=== PATIENT | female | born 1990 | race Caucasian/White ===

== ENCOUNTER → 2016-12-29 | Outpatient (CLI) | payer OTHER ==
[2016-12-29 14:06] LABS: APPEARANCE,URINE SLIGHTLY-CLOUDY; BILIRUBIN,URINE NEGATIVE (NEGATIVE); GLUCOSE, URINE NEGATIVE (NEGATIVE); KETONES,URINE NEGATIVE (NEGATIVE); LEUKOCYTE ESTERASE,URINE SMALL (NEGATIVE); NITRITE,URINE NEGATIVE (NEGATIVE); PROTEIN,URINE 30 mg/dL (NEGATIVE); URINE SPECIFIC GRAVITY 1.024; UROBILINOGEN,URINE NEGATIVE mg/dL (<2.0)
[2016-12-29 14:14] LABS: ALANINE AMINOTRANSFERASE 28 U/L (9-52); ALBUMIN 3.6 g/dL (3.5-5.0); ALKALINE PHOSPHATASE 50 U/L (38-126); ANION GAP 10 (5-19); ASPARTATE AMINO TRANSFERASE 14 U/L (14-36); BILIRUBIN,TOTAL 0.2 mg/dL (0.2-1.3); BLOOD UREA NITROGEN 10 mg/dL (7-20); CALCIUM 8.9 mg/dL (8.4-10.2); CARBON DIOXIDE 18 mmol/L (22-30); CHLORIDE 115 mmol/L (98-107); GLUCOSE 80 mg/dL (75-110); POTASSIUM 3.5 mmol/L (3.6-5.0); SODIUM 142.8 mmol/L (137-145); TOTAL PROTEIN 6.4 g/dL (6.3-8.2)
[2016-12-29 14:18] LABS: C-REACTIVE PROTEIN < 5.0 mg/L (<10.0); CREATINE KINASE < 20 U/L (30-135)
[2016-12-29 14:34] LABS: ABSOLUTE LYMPHOCYTES (AUTO) 0.9 10^3/uL (0.5-4.7); ABSOLUTE MONOCYTES (AUTO) 0.4 10^3/uL (0.1-1.4); ABSOLUTE NEUT (AUTO) 2.2 10^3/uL (1.7-8.2); BASOPHILS % (AUTO) 0.2 % (0-2); EOSINOPHILS % (AUTO) 0.3 % (0-6); HEMATOCRIT 28.3 % (36.0-47.0); HEMOGLOBIN 9.4 g/dL (12.0-15.5); HGB HCT DIFFERENCE -0.1; LYMPHOCYTES % (AUTO) 24.9 % (13-45); MEAN CORPUSCULAR HEMOGLOBIN 28.1 pg (27.0-33.4); MEAN CORPUSCULAR HGB CONC 33.1 g/dL (32.0-36.0); MEAN CORPUSCULAR VOLUME 85 fl (80-97); MONOCYTES % (AUTO) 12.5 % (3-13); RED BLOOD COUNT 3.34 10^6/uL (3.72-5.28); RED CELL DISTRIBUTION WIDTH 20.7 % (11.5-14.0); SEGMENTED NEUTROPHILS % (AUTO) 62.1 % (42-78); WHITE BLOOD COUNT 3.6 10^3/uL (4.0-10.5)
[2016-12-29 15:10] LABS: ERYTHROCYTE SEDIMENTATION RATE 22 mm/hr (0-20)
[2016-12-30 10:45] LABS: VITAMIN D 25-HYDROXY 19.2 ng/mL (30.0-100.0)
[2017-01-03 13:39] LABS: QUANTIFERON TB ANTIGEN VALUE 0.08 IU/mL (.)
== END ==
LOC: LAB 13:41
PROVIDERS: ATTEND Internal Medicine Rheumatology
DX: M32.9 Systemic lupus erythematosus, unspecified (principal); M33.20 Polymyositis, organ involvement unspecified; M32.14 Glomerular disease in systemic lupus erythematosus; M25.50 Pain in unspecified joint; M79.1 Myalgia; Z79.899 Other long term (current) drug therapy
CPT/HCPCS: 36415; 80053; 81001; 82306; 82550; 85025; 85652; 86140; 86480

== ENCOUNTER → 2017-01-19 | Outpatient (CLI) | payer OTHER ==
[2017-01-19 12:05] LABS: ABSOLUTE LYMPHOCYTES (AUTO) 0.4 10^3/uL (0.5-4.7); ABSOLUTE MONOCYTES (AUTO) 0.4 10^3/uL (0.1-1.4); ABSOLUTE NEUT (AUTO) 4.7 10^3/uL (1.7-8.2); BASOPHILS % (AUTO) 0.1 % (0-2); HEMATOCRIT 32.1 % (36.0-47.0); HEMOGLOBIN 10.5 g/dL (12.0-15.5); HGB HCT DIFFERENCE -0.6; LYMPHOCYTES % (AUTO) 7.4 % (13-45); MEAN CORPUSCULAR HEMOGLOBIN 27.9 pg (27.0-33.4); MEAN CORPUSCULAR HGB CONC 32.6 g/dL (32.0-36.0); MEAN CORPUSCULAR VOLUME 86 fl (80-97); MONOCYTES % (AUTO) 7.7 % (3-13); RED BLOOD COUNT 3.75 10^6/uL (3.72-5.28); RED CELL DISTRIBUTION WIDTH 19.3 % (11.5-14.0); SEGMENTED NEUTROPHILS % (AUTO) 84.8 % (42-78); WHITE BLOOD COUNT 5.5 10^3/uL (4.0-10.5)
[2017-01-19 12:32] LABS: ALANINE AMINOTRANSFERASE 25 U/L (9-52); ALBUMIN 4.2 g/dL (3.5-5.0); ALKALINE PHOSPHATASE 55 U/L (38-126); ANION GAP 13 (5-19); ASPARTATE AMINO TRANSFERASE 16 U/L (14-36); BILIRUBIN,DIRECT 0.1 mg/dL (0.0-0.4); BILIRUBIN,TOTAL 0.2 mg/dL (0.2-1.3); BLOOD UREA NITROGEN 19 mg/dL (7-20); CALCIUM 10.2 mg/dL (8.4-10.2); CARBON DIOXIDE 17 mmol/L (22-30); CHLORIDE 114 mmol/L (98-107); CREATININE RESULT 0.79 mg/dL (0.52-1.25); GLUCOSE 122 mg/dL (75-110); POTASSIUM 3.9 mmol/L (3.6-5.0); SODIUM 143.7 mmol/L (137-145); TOTAL PROTEIN 7.2 g/dL (6.3-8.2)
[2017-01-19 12:43] LABS: ERYTHROCYTE SEDIMENTATION RATE 25 mm/hr (0-20)
[2017-01-20 06:39] LABS: COMPLEMENT C4 5 mg/dL (14-44)
[2017-01-20 10:15] LABS: COMPLEMENT C3 76 mg/dL (82-167)
[2017-01-20 10:38] LABS: ANTI-SS-B AB SJOGREN'S <0.2 AI (0.0-0.9)
[2017-01-20 14:57] LABS: JO-1 ANTIBODY <0.2 AI (0.0-0.9)
[2017-01-20 15:38] LABS: A/G RATIO 1.3 (0.7-1.7); ALBUMIN 2 3.8 g/dL (2.9-4.4); ALPHA-1-GLOBULIN 2 0.2 g/dL (0.0-0.4); GAMMA GLOBULIN 1.3 g/dL (0.4-1.8); PROTEIN TOTAL SERUM 6.8 g/dL (6.0-8.5)
[2017-01-20 16:28] LABS: CREATININE 0.79 mg/dL (0.52-1.25)
[2017-01-20 16:37] LABS: URINE CREATININE 57.8 mg/dL (16-327)
[2017-01-20 16:43] LABS: URINE CREATININE 57.8 mg/dL (16-327)
[2017-01-21 12:06] LABS: COMPLEMENT TOTAL (CH50) 31 U/mL (42-60)
[2017-01-23 07:14] LABS: PROTEIN TOTAL UR 24HR 556.8 mg/24 hr (30.0-150.0)
== END ==
LOC: LAB 11:29
PROVIDERS: ATTEND Internal Medicine Nephrology
DX: I10 Essential (primary) hypertension (principal); R31.29 Other microscopic hematuria; R80.9 Proteinuria, unspecified; M32.9 Systemic lupus erythematosus, unspecified
CPT/HCPCS: 36415; 80053; 82570; 82575; 84156; 84165; 85025; 85652; 86160; 86162; 86225; 86235

== ENCOUNTER 2017-02-08 05:57 | Day surgery (SDC) | payer OTHER ==
[2017-02-08 06:48] LABS: PROTHROMBIN TIME 13.2 SEC (11.4-15.4)
[2017-02-08 06:49] LABS: PARTIAL THROMBOPLASTIN TIME 26.7 SEC (23.5-35.8)
[2017-02-08 06:50] LABS: HEMATOCRIT 30.3 % (36.0-47.0); HEMOGLOBIN 10.1 g/dL (12.0-15.5); MEAN CORPUSCULAR HEMOGLOBIN 29.1 pg (27.0-33.4); MEAN CORPUSCULAR HGB CONC 33.2 g/dL (32.0-36.0); MEAN CORPUSCULAR VOLUME 88 fl (80-97); RED BLOOD COUNT 3.45 10^6/uL (3.72-5.28); RED CELL DISTRIBUTION WIDTH 18.4 % (11.5-14.0); WHITE BLOOD COUNT 3.4 10^3/uL (4.0-10.5)
[2017-02-08] MEDS ORDERED: MIDAZOLAM 2 MG/2 ML INJ ONE (08:17)
[2017-02-08] MEDS ORDERED: FENTANYL CITRATE INJ/PF 100 MCG/2 ML AMPUL ONE (08:17)
[2017-02-08] MEDS ORDERED: OXYCODONE HCL IR 5 MG TABLET ONE (09:42)
[2017-02-08] MEDS ORDERED: OXYCODONE-ACETAMINOPHEN 5-325 MG TABLET ONE (09:43)
[2017-02-08] MEDS ORDERED: DEXTROSE 5%-1/2 NORMAL SALINE 1,000 ML IV PRN (09:45)
[2017-02-08] MEDS ORDERED: OXYCODONE-ACETAMINOPHEN 5-325 MG TABLET PO PRN (09:46)
[2017-02-08] MEDS ORDERED: OXYCODONE HCL IR 5 MG TABLET PO PRN (09:47)
[2017-02-08 11:31] VITALS: BP 110/74
== END 2017-02-08 11:30 | disposition home or self-care (01) ==
LOC: RAD 05:57
PROVIDERS: ATTEND Internal Medicine Nephrology
PROC: 0TB33ZX Excision of Right Kidney Pelvis, Percutaneous Approach, Diagnostic (ICD-10-PCS; principal; 2017-02-08)
DX: M32.14 Glomerular disease in systemic lupus erythematosus (principal); N26.1 Atrophy of kidney (terminal); N26.9 Renal sclerosis, unspecified; R31.29 Other microscopic hematuria; R80.9 Proteinuria, unspecified
CPT/HCPCS: 36415; 82553; 84520; 85027; 85610; 85730; 88346; 88348 ×2; 88313 ×2; 77012; 50200; J2250; J3010

== ENCOUNTER → 2017-03-24 | Outpatient (CLI) | payer OTHER ==
[2017-03-24 15:05] LABS: ABSOLUTE MONOCYTES (AUTO) 0.5 10^3/uL (0.1-1.4); ABSOLUTE NEUT (AUTO) 1.9 10^3/uL (1.7-8.2); BASOPHILS % (AUTO) 0.3 % (0-2); EOSINOPHILS % (AUTO) 0.3 % (0-6); HEMATOCRIT 31.2 % (36.0-47.0); HEMOGLOBIN 10.2 g/dL (12.0-15.5); HGB HCT DIFFERENCE -0.6; MEAN CORPUSCULAR HEMOGLOBIN 28.2 pg (27.0-33.4); MEAN CORPUSCULAR HGB CONC 32.7 g/dL (32.0-36.0); MEAN CORPUSCULAR VOLUME 86 fl (80-97); MONOCYTES % (AUTO) 15.2 % (3-13); RED BLOOD COUNT 3.61 10^6/uL (3.72-5.28); RED CELL DISTRIBUTION WIDTH 16.7 % (11.5-14.0); SEGMENTED NEUTROPHILS % (AUTO) 56.2 % (42-78); WHITE BLOOD COUNT 3.4 10^3/uL (4.0-10.5)
[2017-03-24 15:14] LABS: APPEARANCE,URINE CLEAR; BILIRUBIN,URINE NEGATIVE (NEGATIVE); GLUCOSE, URINE NEGATIVE (NEGATIVE); KETONES,URINE NEGATIVE (NEGATIVE); LEUKOCYTE ESTERASE,URINE NEGATIVE (NEGATIVE); NITRITE,URINE NEGATIVE (NEGATIVE); PROTEIN,URINE 100 mg/dL (NEGATIVE); URINE SPECIFIC GRAVITY 1.013; UROBILINOGEN,URINE NEGATIVE mg/dL (<2.0)
[2017-03-24 15:22] LABS: ALANINE AMINOTRANSFERASE 33 U/L (9-52); ALBUMIN 3.6 g/dL (3.5-5.0); ALKALINE PHOSPHATASE 52 U/L (38-126); ANION GAP 14 (5-19); ASPARTATE AMINO TRANSFERASE 18 U/L (14-36); BILIRUBIN,DIRECT 0.2 mg/dL (0.0-0.4); BILIRUBIN,TOTAL 0.4 mg/dL (0.2-1.3); BLOOD UREA NITROGEN 11 mg/dL (7-20); CALCIUM 8.8 mg/dL (8.4-10.2); CARBON DIOXIDE 17 mmol/L (22-30); CHLORIDE 116 mmol/L (98-107); CREATININE RESULT 0.99 mg/dL (0.52-1.25); GLUCOSE 77 mg/dL (75-110); POTASSIUM 3.4 mmol/L (3.6-5.0); SODIUM 146.6 mmol/L (137-145); TOTAL PROTEIN 6.4 g/dL (6.3-8.2)
[2017-03-24 15:29] LABS: C-REACTIVE PROTEIN < 5.0 mg/L (<10.0); CREATINE KINASE < 20 U/L (30-135)
[2017-03-24 15:39] LABS: ERYTHROCYTE SEDIMENTATION RATE 45 mm/hr (0-20)
== END ==
LOC: LAB 14:48
PROVIDERS: ATTEND Internal Medicine Rheumatology
DX: M32.9 Systemic lupus erythematosus, unspecified (principal); L56.2 Photocontact dermatitis [berloque dermatitis]; M33.20 Polymyositis, organ involvement unspecified; M32.14 Glomerular disease in systemic lupus erythematosus; M25.50 Pain in unspecified joint; M79.1 Myalgia; Z79.899 Other long term (current) drug therapy
CPT/HCPCS: 36415; 80053; 81001; 82550; 84550; 85025; 85652; 86140; 86225

== ENCOUNTER → 2017-07-18 | Outpatient (CLI) | payer OTHER ==
[2017-07-18 12:21] LABS: ABSOLUTE LYMPHOCYTES (AUTO) 0.8 10^3/uL (0.5-4.7); ABSOLUTE MONOCYTES (AUTO) 0.5 10^3/uL (0.1-1.4); ABSOLUTE NEUT (AUTO) 3.7 10^3/uL (1.7-8.2); BASOPHILS % (AUTO) 0.4 % (0-2); EOSINOPHILS % (AUTO) 0.1 % (0-6); HEMATOCRIT 27.8 % (36.0-47.0); HEMOGLOBIN 9.4 g/dL (12.0-15.5); HGB HCT DIFFERENCE 0.4; LYMPHOCYTES % (AUTO) 16.6 % (13-45); MEAN CORPUSCULAR HEMOGLOBIN 31.2 pg (27.0-33.4); MEAN CORPUSCULAR HGB CONC 33.8 g/dL (32.0-36.0); MEAN CORPUSCULAR VOLUME 92 fl (80-97); MONOCYTES % (AUTO) 10.6 % (3-13); RED BLOOD COUNT 3.01 10^6/uL (3.72-5.28); RED CELL DISTRIBUTION WIDTH 17.7 % (11.5-14.0); SEGMENTED NEUTROPHILS % (AUTO) 72.3 % (42-78); WHITE BLOOD COUNT 5.1 10^3/uL (4.0-10.5)
[2017-07-18 12:38] LABS: APPEARANCE,URINE CLEAR; BILIRUBIN,URINE NEGATIVE (NEGATIVE); GLUCOSE, URINE NEGATIVE (NEGATIVE); KETONES,URINE NEGATIVE (NEGATIVE); LEUKOCYTE ESTERASE,URINE SMALL (NEGATIVE); NITRITE,URINE NEGATIVE (NEGATIVE); PROTEIN,URINE NEGATIVE (NEGATIVE); URINE SPECIFIC GRAVITY 1.002; UROBILINOGEN,URINE NEGATIVE mg/dL (<2.0)
[2017-07-18 12:46] LABS: ALANINE AMINOTRANSFERASE 24 U/L (9-52); ALBUMIN 3.1 g/dL (3.5-5.0); ALKALINE PHOSPHATASE 69 U/L (38-126); ANION GAP 11 (5-19); ASPARTATE AMINO TRANSFERASE 25 U/L (14-36); BILIRUBIN,DIRECT 0.2 mg/dL (0.0-0.4); BILIRUBIN,TOTAL 0.2 mg/dL (0.2-1.3); BLOOD UREA NITROGEN 11 mg/dL (7-20); CARBON DIOXIDE 19 mmol/L (22-30); CHLORIDE 111 mmol/L (98-107); CREATININE RESULT 0.61 mg/dL (0.52-1.25); GLUCOSE 73 mg/dL (75-110); POTASSIUM 3.9 mmol/L (3.6-5.0); SODIUM 141.2 mmol/L (137-145); TOTAL PROTEIN 5.9 g/dL (6.3-8.2)
[2017-07-18 12:58] LABS: C-REACTIVE PROTEIN < 5.0 mg/L (<10.0); CREATINE KINASE < 20 U/L (30-135)
[2017-07-18 13:02] LABS: ERYTHROCYTE SEDIMENTATION RATE 69 mm/hr (0-20)
[2017-07-19 06:40] LABS: COMPLEMENT C4 12 mg/dL (14-44)
[2017-07-19 07:09] LABS: COMPLEMENT C3 113 mg/dL (82-167)
[2017-07-19 14:01] LABS: DNA DOUBLE STRAND ANTIBODY 11 IU/mL (0-9)
[2017-07-19 14:56] LABS: COMPLEMENT TOTAL (CH50) 47 U/mL (42-60)
== END ==
LOC: OD 11:13
PROVIDERS: ATTEND Internal Medicine Rheumatology
DX: M32.14 Glomerular disease in systemic lupus erythematosus (principal); M33.20 Polymyositis, organ involvement unspecified; L56.2 Photocontact dermatitis [berloque dermatitis]; I77.6 Arteritis, unspecified
CPT/HCPCS: 36415; 80053; 81001; 82550; 85025; 85652; 86140; 86160; 86162; 86225

== ENCOUNTER 2018-02-12 17:32 | Emergency (ER) | payer OTHER ==
[2018-02-12] MEDS ORDERED: NORMAL SALINE 1000 ML 1,000 ML IV ONE ×2 (18:26→20:25)
[2018-02-12] MEDS ORDERED: MORPHINE SULFATE 10 MG/ML INJ IV ONE (18:26)
[2018-02-12] MEDS ORDERED: HYDROMORPHONE HCL INJ/PF 2 MG/ML AMPULE IV ONE ×4 (18:30→23:51)
--- NOTE | 2018-02-12 18:30 | ER Document Report ---
ED Medical Screen (RME) - General Chief Complaint: Breathing Difficulty Stated Complaint: DIFFICULTY BREATHING Time Seen by Provider: 02/12/18 18:24 Notes: Patient has a history of discoid lupus. She states she is followed by rheumatology. She states for 3 weeks she has had progressive shortness of breath. No history of PEs or DVTs. She states she is also having significant left upper quadrant abdominal pain. TRAVEL OUTSIDE OF THE [place] IN LAST 30 DAYS: No - Related Data Allergies/Adverse Reactions: No Known Allergies Allergy (Verified 11/05/15 18:19) Past Medical History - Social History Chew tobacco use (# tins/day): No Frequency of alcohol use: None Drug Abuse: None - Past Medical History Cardiac Medical History: Denies: Hx Coronary Artery Disease, Hx Heart Attack, Hx Hypertension Pulmonary Medical History: Reports: Hx Asthma Denies: Hx Bronchitis, Hx COPD, Hx Pneumonia Neurological Medical History: Denies: Hx Cerebrovascular Accident, Hx Seizures Renal/ Medical History: Denies: Hx Peritoneal Dialysis Musculoskeltal Medical History: Reports Hx Arthritis - Lupus - Immunizations Hx Diphtheria, Pertussis, Tetanus Vaccination: No Physical Exam - Vital signs Vitals: Temp Pulse Resp BP Pulse Ox 97.5 F 121 H 24 H 113/77 100 02/12/18 17:39 02/12/18 17:39 02/12/18 17:39 02/12/18 17:39 02/12/18 17:39 Course - Vital Signs Vital signs: Temp Pulse Resp BP Pulse Ox 97.5 F 121 H 24 H 113/77 100 02/12/18 17:39 02/12/18 17:39 02/12/18 17:39 02/12/18 17:39 02/12/18 17:39
[2018-02-12 19:13] LABS: ABSOLUTE LYMPHOCYTES (AUTO) 1.1 10^3/uL (0.5-4.7); ABSOLUTE NEUT (AUTO) 9.7 10^3/uL (1.7-8.2); BASOPHILS % (AUTO) 0.3 % (0-2); HEMATOCRIT 35.9 % (36.0-47.0); HEMOGLOBIN 11.9 g/dL (12.0-15.5); LYMPHOCYTES % (AUTO) 8.6 % (13-45); MEAN CORPUSCULAR HEMOGLOBIN 27.7 pg (27.0-33.4); MEAN CORPUSCULAR HGB CONC 33.1 g/dL (32.0-36.0); MEAN CORPUSCULAR VOLUME 84 fl (80-97); MONOCYTES % (AUTO) 15.8 % (3-13); PLATELET COUNT 235 10^3/uL (150-450); RED BLOOD COUNT 4.29 10^6/uL (3.72-5.28); RED CELL DISTRIBUTION WIDTH 20.8 % (11.5-14.0); SEGMENTED NEUTROPHILS % (AUTO) 75.3 % (42-78); TOTAL CELLS COUNTED % (AUTO) 100 %; WHITE BLOOD COUNT 12.8 10^3/uL (4.0-10.5)
--- NOTE | 2018-02-12 19:25 | RADIOLOGY REPORT (SQ) ---
EXAM DESCRIPTION: CHEST 2 VIEWS COMPLETED DATE/TIME: 02/12/2018 7:11 pm REASON FOR STUDY: sob COMPARISON: 03/13/2013 EXAM PARAMETERS: NUMBER OF VIEWS: two views TECHNIQUE: Digital Frontal and Lateral radiographic views of the chest acquired. RADIATION DOSE: NA LIMITATIONS: none FINDINGS: LUNGS AND PLEURA: No opacities, masses or pneumothorax. No pleural effusion. MEDIASTINUM AND HILAR STRUCTURES: No masses or contour abnormalities. HEART AND VASCULAR STRUCTURES: Heart normal size. No evidence for failure. BONES: No acute findings. HARDWARE: None in the chest. OTHER: No other significant finding. IMPRESSION: NO ACUTE RADIOGRAPHIC FINDING IN THE CHEST. TECHNICAL DOCUMENTATION: JOB ID: [id number] [employer]- All Rights Reserved Reading location - IP/workstation name: [email or web address]
[2018-02-12 19:26] LABS: ALANINE AMINOTRANSFERASE 20 U/L (9-52); ALBUMIN 3.7 g/dL (3.5-5.0); ALKALINE PHOSPHATASE 74 U/L (38-126); ASPARTATE AMINO TRANSFERASE 22 U/L (14-36); BILIRUBIN,DIRECT 0.5 mg/dL (0.0-0.4); BILIRUBIN,TOTAL 0.6 mg/dL (0.2-1.3); BLOOD UREA NITROGEN 16 mg/dL (7-20); CALCIUM 8.8 mg/dL (8.4-10.2); CHLORIDE 113 mmol/L (98-107); GLUCOSE 110 mg/dL (75-110); TOTAL PROTEIN 7.3 g/dL (6.3-8.2)
[2018-02-12 19:35] LABS: ANION GAP 20 (5-19); SODIUM 138.5 mmol/L (137-145)
[2018-02-12 19:37] LABS: CARBON DIOXIDE 6 mmol/L (22-30); POTASSIUM 2.5 mmol/L (3.6-5.0)
--- NOTE | 2018-02-12 19:57 | ER Document Report ---
ED General - General Chief Complaint: Breathing Difficulty Stated Complaint: DIFFICULTY BREATHING Time Seen by Provider: 02/12/18 18:24 Mode of Arrival: Ambulatory Information source: Patient Notes: 27 yo having really hard time breathing, smallest amount of movement causes shortness of breath. Not eaten for 3-4 weeks, losing weight. Lives with . PCP: Dr Bogdan Diaz- saw him 1 month ago. Lupus rash 1 month ago. Hospitalized at [facility](Lupus Flare) and [facility] (pneumomediastinum ) for Lupus. Takes 15 mg Prednisone daily. Normal weight is 150-160, today weighs 129. Dx. Lupus- 2010 TRAVEL OUTSIDE OF THE [place] IN LAST 30 DAYS: No - Related Data Allergies/Adverse Reactions: No Known Allergies Allergy (Verified 11/05/15 18:19) Past Medical History - General Information source: Patient - Social History Smoking Status: Never Smoker Chew tobacco use (# tins/day): No Frequency of alcohol use: None Drug Abuse: None Family History: Reviewed & Not Pertinent Patient has suicidal ideation: No Patient has homicidal ideation: No Pulmonary Medical History: Reports: Hx Asthma Musculoskeltal Medical History: Reports Hx Arthritis - Lupus, Reports Other - LUPUS Surgical Hx: Negative - Immunizations Hx Diphtheria, Pertussis, Tetanus Vaccination: No Review of Systems - Review of Systems Constitutional: See HPI EENT: No symptoms reported Cardiovascular: No symptoms reported Respiratory: See HPI Gastrointestinal: See HPI Genitourinary: No symptoms reported Female Genitourinary: No symptoms reported Musculoskeletal: See HPI Skin: No symptoms reported Hematologic/Lymphatic: No symptoms reported Neurological/Psychological: No symptoms reported Physical Exam - Vital signs Vitals: Temp Pulse Resp BP Pulse Ox 97.5 F 121 H 24 H 113/77 100 02/12/18 17:39 02/12/18 17:39 02/12/18 17:39 02/12/18 17:39 02/12/18 17:39 Interpretation: Tachycardic - General General appearance: Alert, Other - cachectic - HEENT Head: Normocephalic, Atraumatic Eyes: Normal Conjunctiva: Normal Pupils: PERRL Mouth/Lips: Other - gingivostomatitis, hard palate with stomatitis rash Neck: Supple. No: Lymphadenopathy - Respiratory Respiratory status: No respiratory distress Chest status: Nontender Breath sounds: Normal Chest palpation: Normal - Cardiovascular Rhythm: Regular Heart sounds: Normal auscultation Murmur: No - Abdominal Inspection: Normal Distension: No distension Bowel sounds: Normal Tenderness: Nontender. No: Tender Organomegaly: No organomegaly - Back Back: Normal, Nontender. No: CVA tenderness - Extremities General upper extremity: Normal inspection, Nontender, Normal color, Normal ROM , Normal temperature General lower extremity: Normal inspection, Nontender, Normal color, Normal ROM , Normal temperature, Normal weight bearing. No: Oniel's sign - Neurological Neuro grossly intact: Yes Cognition: Normal Orientation: AAOx4 [place] Coma Scale Eye Opening: Spontaneous [place] Coma Scale Verbal: Oriented [place] Coma Scale Motor: Obeys Commands [place] Coma Scale Total: 15 Speech: Normal Motor strength normal: LUE, RUE, LLE, RLE Sensory: Normal - Psychological Associated symptoms: Normal affect, Normal mood - Skin Skin Temperature: Warm Skin Moisture: Dry Skin Color: Normal Skin irregularity: Rash - discooid lupus rash most pronounced on the face Course - Re-evaluation Re-evalutation: 02/12/18 20:[address] allred about what else to order for the pt. based K+ 2.5, C02 6. Spoke with nurse about what is needed. 02/12/18 22:41 PH is 7.15 in the down to 2.2. Dr. Allred said to give her 60 mEq of potassium p.o. if she can tolerate it and give her some sodium bicarb IV 50 MEQ 02/12/18 23:18 calling [facility] for transfer, for Medical ICU, and rhematology. They have 1 MICU bed. In File Operator will call me back 02/12/18 23:36 dr. Kaci Diego will admit to MICU, transfer center will call back with room assignment. He recommends 150 mEq of sodium bicarb and 1 L to run at 200 an hour. pt refused cath urine. 02/12/18 23:51 Patient still complaining of generalized pain 5/5. 02/13/18 01:09 vitals stable, pain 3/5 generalized, feels slightly better than when she arrived. Stable for transport. The CT of the chest shows the pneumo mediastinum that was diagnosed in May 2017, the abdominal CT was negative. 02/13/18 01:10 - Vital Signs Vital signs: Temp Pulse Resp BP Pulse Ox 97.5 F 121 H 14 117/83 98 02/12/18 17:39 02/12/18 17:39 02/13/18 00:52 02/13/18 00:02 02/13/18 00:52 - Laboratory Result Diagrams: 02/12/18 18:58 02/12/18 20:30 Laboratory results interpreted by me: 02/12/18 02/12/18 02/12/18 18:58 18:58 20:30 WBC 12.8 H Hgb 11.9 L Hct 35.9 L RDW 20.8 H Lymphocytes % 8.6 L Monocytes % 15.8 H Absolute Neutrophils 9.7 H Absolute Monocytes 2.0 H ESR VBG pH VBG pCO2 VBG HCO3 Potassium 2.5 L* 2.2 L* Chloride 113 H 114 H Carbon Dioxide 6 L* < 5 L* Anion Gap 20 H Creatinine 1.48 H 1.40 H Est GFR ( Amer) 52 L 55 L Est GFR (Non-Af Amer) 43 L 46 L Calcium 8.3 L Direct Bilirubin 0.5 H 02/12/18 02/12/18 21:21 22:05 WBC Hgb Hct RDW Lymphocytes % Monocytes % Absolute Neutrophils Absolute Monocytes ESR 58 H VBG pH 7.18 L* VBG pCO2 24.5 L VBG HCO3 8.9 L Potassium Chloride Carbon Dioxide Anion Gap Creatinine Est GFR ( Amer) Est GFR (Non-Af Amer) Calcium Direct Bilirubin Discharge - Discharge Clinical Impression: Hypokalemia, Lupus flare, Lupus rash, Stomatitis, Acidosis, Dehydration Condition: Fair Disposition: [facility]
[2018-02-12] MEDS ORDERED: METHYLPREDNISOLONE INJ 1000 MG VIAL IV ONE (20:30)
[2018-02-12] MEDS: POTASSI CL 20 MEQ/50 ML RIDER 20 MEQ/50 ML RTUPB IV SCH ×2 (20:38→23:10)
[2018-02-12 21:11] LABS: BLOOD UREA NITROGEN 15 mg/dL (7-20); CALCIUM 8.3 mg/dL (8.4-10.2); CHLORIDE 114 mmol/L (98-107); GLUCOSE 85 mg/dL (75-110)
[2018-02-12 21:14] LABS: C-REACTIVE PROTEIN 8.2 mg/L (<10.0)
[2018-02-12 21:20] LABS: POTASSIUM 2.2 mmol/L (3.6-5.0)
[2018-02-12 21:21] LABS: CARBON DIOXIDE < 5 mmol/L (22-30)
[2018-02-12] MEDS ORDERED: POTASSIUM CHLORIDE 20 MEQ/15 ML UDCUP PO ONE (22:12)
[2018-02-12 22:39] LABS: VENOUS BLOOD BASE EXCESS -17.9 mmol/L; VENOUS BLOOD HCO3 8.9 mmol/L (20-32); VENOUS BLOOD PCO2 24.5 mmHg (35-63)
[2018-02-12 22:40] LABS: VENOUS BLOOD PH 7.18 (7.30-7.42)
[2018-02-12] MEDS ORDERED: SODIUM BICARBONATE 8.4% INJ 50 MEQ/50 ML DISP.SYRIN IV ONE ×2 (22:40→23:39)
--- NOTE | 2018-02-13 00:18 | RADIOLOGY REPORT (SQ) ---
EXAM DESCRIPTION: CT of the chest, abdomen, and pelvis obtained with and without contrast. CLINICAL HISTORY: chest pain, abdominal pain. Sob COMPARISON: None Available. TECHNIQUE: CT of the chest, abdomen, and pelvis obtained with and without contrast. 100 mL of Isovue-370 for IV contrast. DLP: 2045.87 mGycm FINDINGS: FINDINGS: Chest: Pulmonary arteries: Contrast bolus is adequate.No filling defects identified in the pulmonary arteries to suggest pulmonary embolus. Thyroid:No abnormalities of the visualized thyroid. Great Vessels:Great vessels have normal anatomic configuration. Thoracic Aorta:No abnormalities of the thoracic aorta identified. Heart:No cardiomegaly, significant pericardial effusion, or coronary artery atherosclerosis Lymph Nodes:No enlarged mediastinal lymph nodes identified. Esophagus:No abnormalities of the esophagus identified. Other:Extensive pneumomediastinum identified extending from just above the gastroesophageal junction into the soft tissues of the right neck. The source of pneumomediastinum is not identified on this study. Lungs:No alveolar or interstitial airspace opacities identified. Pleura:No pleural effusion or pneumothorax. Trachea/Airways:No abnormalities of the visualized trachea or airways. Bones: No destructive bone lesions identified. Abdomen: Liver: The liver has normal size and density. No intrahepatic mass or biliary dilatation. Gallbladder: No calcified gallstones. Spleen, Pancreas, and Adrenal Glands: The spleen, pancreas, and adrenal glands are unremarkable. Kidneys: The kidneys have normal size and contour without evidence of solid mass or hydronephrosis. Bosniak class I right renal cyst. Vasculature: The aorta and IVC have normal caliber and position. The portal vein is patent. The proximal visceral and renal arteries are patent. Stomach: The stomach and duodenum have normal course. Other: No free intraperitoneal air. No free fluid or lymphadenopathy. Pelvis: Bladder: Urinary bladder is unremarkable. Bowel: No dilated loops of large or small bowel. Appendix: Normal appendix. Pelvis: Uterus is not enlarged. IMPRESSION: 1. Extensive pneumomediastinum without definite source identified on this study. No pneumothorax. 2. No acute inflammatory or obstructive abnormality identified in the abdomen or pelvis. This exam was performed according to our departmental dose-optimization program, which includes automated exposure control, adjustment of the mA and/or kV according to patient size and/or use of iterative reconstruction technique.
[2018-02-13] MEDS ORDERED: SODIUM BICARBONATE 8.4% INJ 50 MEQ/50 ML DISP.SYRIN ONE (00:19)
[2018-02-13 01:14] VITALS: BP 100/65
--- NOTE | 2018-02-15 09:10 | EKG REPORT ---
SEVERITY:- ABNORMAL ECG - SINUS RHYTHM ABNORMAL T, CONSIDER ISCHEMIA, DIFFUSE LEADS : Confirmed by: Blessing Jacob 15-Feb-2018 09:09:55
== END 2018-02-13 01:15 | disposition short-term general hospital (02) ==
LOC: ER 17:32
DX: E87.6 Hypokalemia (principal); L93.0 Discoid lupus erythematosus; K12.1 Other forms of stomatitis; E87.2 Acidosis; E86.0 Dehydration; R06.00 Dyspnea, unspecified; R06.02 Shortness of breath
CPT/HCPCS: 93005; 96376; 99285; 96361; 96375; 96365; 96366; 36415; 83735; 84443; 84703; 85025; 85652; 80048; 86140; 80053; 82803; 71046; 71275; 74177; 93010; J2930; J1170 ×2; J3490; J3480; J7030